=== PATIENT | male | born 1975 | race Caucasian/White ===

== ENCOUNTER 2018-01-14 14:52 | Day surgery (SDC) | payer BC ==
[~2018-01-14 14:52] MED LIST: PROPOFOL 200 MG INJ; ROCURONIUM 50 MG INJ; SUCCINYLCHOLINE CHLORIDE 100 MG/5 ML SYG IV
[2018-01-14] MEDS ORDERED: HYDROCODONE/APAP (5/325) TAB PO (17:30)
[2018-01-14] MEDS ORDERED: morphine 2 MG INJ IV (17:30)
[2018-01-14] MEDS ORDERED: ONDANSETRON 4 MG INJ IV ×2 (17:30→20:00)
[2018-01-14] MEDS ORDERED: LIDOCAINE 1% (MDV) 20 ML INJ (17:39)
[2018-01-14] MEDS ORDERED: MIDAZOLAM 1 MG/ML 2 ML INJ (17:39)
[2018-01-14] MEDS ORDERED: DEXAMETHASONE 4 MG/ML 1 ML INJ (17:51)
[2018-01-14] MEDS ORDERED: ONDANSETRON 4 MG INJ (17:51)
[2018-01-14] MEDS ORDERED: FAMOTIDINE 20 MG INJ (17:51)
[2018-01-14] MEDS ORDERED: CEFAZOLIN 1 GM INJ (17:51)
[2018-01-14] MEDS ORDERED: SUGAMMADEX SODIUM 200 MG/2 ML VIAL IV (19:18)
[2018-01-14] MEDS ORDERED: ROPIVACAINE 0.2% 20 ML VIAL (19:23)
[2018-01-14] MEDS: LIDOCAINE 1% (MPF) 30 ML INJ (19:25)
[2018-01-14] MEDS: BUPIVACAINE 0.25%/EPI (MDV) 50 ML VIAL INJ (19:25)
[2018-01-14] MEDS ORDERED: HYDROmorphONE 1 MG/5 ML IV SYRINGE IV ×2 (20:00)
[2018-01-14] MEDS ORDERED: DIPHENHYDRAMINE 50 MG INJ IV (20:00)
[2018-01-14] MEDS ORDERED: METOCLOPRAMIDE 10 MG INJ IV (20:00)
[2018-01-14] MEDS ORDERED: MEPERIDINE 25 MG INJ IV (20:00)
[2018-01-14] MEDS: HYDROCODONE/APAP (5/325) TAB PO (21:19)
== END 2018-01-14 22:32 | disposition home or self-care (01) ==
LOC: SDS 22:32
DX: K40.20 Bilateral inguinal hernia, without obstruction or gangrene, not specified as recurrent (principal); K43.9 Ventral hernia without obstruction or gangrene; Z87.891 Personal history of nicotine dependence; F10.20 Alcohol dependence, uncomplicated
CPT/HCPCS: 49650

== ENCOUNTER → 2019-01-21 | Day surgery (SDC) | payer BC ==
[~2019-01-21] MED LIST changes: +CEFAZOLIN 1 GM INJ; +CEFAZOLIN 2 GM/50 ML (PMX) 50 ML IVPB; +DEXAMETHASONE 4 MG/ML 5 ML INJ; +DIPHENHYDRAMINE 50 MG INJ IV; +EPHEDrine 25 MG/5 ML SYG IV; +FENTAnyl 50 MCG/ML VIAL IV; +GLYCOPYRROLATE 0.4 MG INJ; +HYDROmorphONE 1 MG/5 ML IV SYRINGE IV; +IBUPROFEN 600 MG TAB PO; +LABETALOL HCL 20MG INJ IV; +LIDOCAINE 2% (SDV) 5 ML INJ; +MEPERIDINE 25 MG INJ IV; +METOCLOPRAMIDE 10 MG INJ IV; +NEOSTIGMINE 3 MG/3 ML SYRINGE; +ONDANSETRON 4 MG INJ; +ONDANSETRON 4 MG INJ IV; +PROPOFOL 20 ML; -PROPOFOL 200 MG INJ; +SEVOFLURANE 15 MIN; -SUCCINYLCHOLINE CHLORIDE 100 MG/5 ML SYG IV; +TRIMETHOBENZAMIDE 100 MG/ML VIAL IM; +hydrALAzine 20 MG INJ IV; +morphine 2 MG INJ IV
[2019-01-21] MEDS: BUPIVACAINE 0.25%/EPI (SDV) 30 ML INJ (08:24)
[2019-01-21] MEDS: LIDOCAINE 1% (MPF) 30 ML INJ (08:24)
[2019-01-21] MEDS: POLYMYXIN/BACITRACIN 1L IRRIG (08:24)
[2019-01-21] MEDS: HYDROCODONE/APAP (5/325) TAB PO (15:00)
== END | disposition home or self-care (01) ==
LOC: SDS 06:18
DX: K40.91 Unilateral inguinal hernia, without obstruction or gangrene, recurrent (principal)
CPT/HCPCS: 49520; 88302